=== PATIENT | male | born 1975 | race Caucasian/White ===

== ENCOUNTER 2016-07-03 12:27 | Emergency (ER) | payer OTHER, BC ==
[~2016-07-03] VITALS: Ht 175.3 cm; Wt 67.0 kg
[2016-07-03] MEDS ORDERED: FLEXERIL10 MG PO (14:38)
[2016-07-03] MEDS ORDERED: PERCOCET 10/1 TABLET PO (14:39)
[2016-07-03 15:48] VITALS: BP 110/70
== END 2016-07-03 15:49 | disposition home or self-care (01) ==
LOC: EME 12:27
DX: R51 Headache (principal); M25.561 Pain in right knee; V49.40XA Driver injured in collision with unspecified motor vehicles in traffic accident, initial encounter
CPT/HCPCS: 73564; 93005; 99281; 99284